=== PATIENT | male | born 1950 | race Caucasian/White ===

== ENCOUNTER 2024-04-21 22:04 | Inpatient (IN) | payer MEDICARE ==
[~2024-04-21] VITALS: Ht 198.1 cm; Wt 120.3 kg
[2024-04-21] MEDS ORDERED: PROT1TAB2 PO (22:40)
[2024-04-21] MEDS ORDERED: XARE15TA PO (22:40)
[2024-04-21] MEDS ORDERED: ATOR1TAB21 PO (22:40)
[2024-04-21] MEDS ORDERED: METO1TAB87 PO (22:40)
[2024-04-21] MEDS ORDERED: KEPP1TAB PO (22:40)
[2024-04-21] MEDS: OXYMETAZOLINE 0.05% NASAL SPRAY (AFRIN) ONE (23:05)
[2024-04-21 23:07] LABS: BASO # 0.1 10^3/uL (0.0-0.2); BASO % 0.5 % (0.0-1.0); HEMATOCRIT 32.6 % (42.0-52.0); HEMOGLOBIN 10.9 g/dl (13.5-17.5); LYMPH # 0.9 10^3/uL (1.5-5.0); LYMPH % 3.2 % (24.0-44.0); MEAN CORPUSCULAR HEMOGLOBIN 33.4 pg (27.0-33.0); MEAN CORPUSCULAR HGB CONC 33.4 g/dl (32.0-36.5); MONO # 2.3 10^3/uL (0.0-0.8); MONO % 7.7 % (2.0-8.0); NEUTROPHILS # 24.6 10^3/uL (1.5-8.5); RED BLOOD COUNT 3.26 10^6/uL (4.30-6.10); WHITE BLOOD COUNT 29.3 10^3/uL (4.0-10.0)
[2024-04-21 23:11] LABS: PLATELET COUNT, AUTOMATED 18 10^3/uL (150-450)
[2024-04-21 23:23] LABS: INR 1.68; PARTIAL THROMBOPLASTIN TIME 28.3 SECONDS (24.8-34.2); PROTHROMBIN TIME 19.3 SECONDS (12.5-14.5)
[2024-04-22] VITALS (15 sets, daily range): BP systolic 120–160; BP diastolic 50–101; TEMP 97.2–101.6; O2SAT 93–97
[2024-04-22 00:54] LABS: BLOOD UREA NITROGEN 30 MG/DL (9-23); CALCIUM LEVEL 8.3 MG/DL (8.3-10.6); CARBON DIOXIDE LEVEL 24 MMOL/L (20-31); CHLORIDE LEVEL 110 MMOL/L (98-107); CREATININE FOR GFR 1.24 MG/DL (0.70-1.30); GLOMERULAR FILTRATION RATE > 60.0 (>42); GLUCOSE, FASTING 123 MG/DL (74-106); POTASSIUM SERUM 3.7 MMOL/L (3.5-5.1); SODIUM LEVEL 142 MMOL/L (136-145)
[2024-04-22] MEDS: AUGMENTIN 875 MG TAB PO SCH (02:26)
[2024-04-22 06:04] LABS: HEMATOCRIT 29.3 % (42.0-52.0); HEMOGLOBIN 9.7 g/dl (13.5-17.5); MEAN CORPUSCULAR HEMOGLOBIN 33.3 pg (27.0-33.0); MEAN CORPUSCULAR HGB CONC 33.1 g/dl (32.0-36.5); MEAN CORPUSCULAR VOLUME 100.7 fl (80.0-96.0); RED BLOOD COUNT 2.91 10^6/uL (4.30-6.10)
[2024-04-22 06:28] LABS: ALBUMIN 2.5 G/DL (3.2-5.2); ALKALINE PHOSPHATASE 201 U/L (46-116); ALT/SGPT 107 U/L (7.0-40); AST/SGOT 98 U/L (<34); BILIRUBIN,TOTAL 0.7 MG/DL (0.3-1.2); BLOOD UREA NITROGEN 29 MG/DL (9-23); CALCIUM LEVEL 8.2 MG/DL (8.3-10.6); CARBON DIOXIDE LEVEL 28 MMOL/L (20-31); CHLORIDE LEVEL 109 MMOL/L (98-107); CREATININE FOR GFR 1.03 MG/DL (0.70-1.30); GLOMERULAR FILTRATION RATE > 60.0 (>42); GLUCOSE, FASTING 108 MG/DL (74-106); POTASSIUM SERUM 3.7 MMOL/L (3.5-5.1); SODIUM LEVEL 142 MMOL/L (136-145); TOTAL PROTEIN 5.2 G/DL (5.7-8.2)
[2024-04-22 06:33] LABS: PLATELET COUNT, AUTOMATED 25 10^3/uL (150-450); WHITE BLOOD COUNT 31.2 10^3/uL (4.0-10.0)
[2024-04-22] MEDS ORDERED: KEPP10002 PO (07:30)
[2024-04-22] MEDS ORDERED: METO1TAB32 PO (07:30)
[2024-04-22] MEDS ORDERED: HOME MED LIST COMPLETE! XX SCH (07:35)
[2024-04-22 07:44] LABS: INR 1.42; PROTHROMBIN TIME 16.9 SECONDS (12.5-14.5)
[2024-04-22] MEDS: LR 1,000 ML IV ONE ×2 (08:26→18:43)
[2024-04-22] MEDS: AMPICILLIN SOD/SULBACTAM SOD 3 GM in D5W MINI-BAG PLUS 100 ML IV SCH (08:27)
[2024-04-22] MEDS: levETIRAcetam 250MG TABLET (KEPPRA) PO SCH (08:27)
[2024-04-22] MEDS: PANTOPRAZOLE 40MG TAB (PROTONIX) PO SCH (08:27)
[2024-04-22 09:07] LABS: C REACTIVE PROTEIN QUANTITATIV 2.5 MG/DL (<1.0)
[2024-04-22 09:17] LABS: PROCALCITONIN 0.26 ng/ml
[2024-04-22] MEDS ORDERED: METOPROLOL SUCC *XL* 25MG TAB (TopROL *XL*) PO SCH ×2 (15:00→21:00)
[2024-04-22] MEDS: METOPROLOL TART 12.5 MG PER 1/2 TAB PO ONE (15:54)
[2024-04-22 16:04] LABS: HEMATOCRIT 31.7 % (42.0-52.0); HEMOGLOBIN 10.5 g/dl (13.5-17.5); MEAN CORPUSCULAR HEMOGLOBIN 33.4 pg (27.0-33.0); MEAN CORPUSCULAR HGB CONC 33.1 g/dl (32.0-36.5); RED BLOOD COUNT 3.14 10^6/uL (4.30-6.10); WHITE BLOOD COUNT 37.5 10^3/uL (4.0-10.0)
[2024-04-22 16:07] LABS: PLATELET COUNT, AUTOMATED 37 10^3/uL (150-450)
[2024-04-22 16:46] LABS: ATYPICAL LYMPH 1 % (0-5); BASOPHILS 1 % (0-1); LYMPHOCYTES 1 % (16-44); METAMYELOCYTES 1 % (0-0); MONOCYTES 5 % (0-5); NEUTROPHILS 84 % (28-66); PLATELET ESTIMATE MARKED DECREASE (NORMAL)
[2024-04-22 16:47] LABS: TOXIC GRANULATION 3+
[2024-04-22] MEDS: ATORVASTATIN 20 MG TAB PO SCH (17:00)
[2024-04-22 17:22] LABS: BASO # 0.2 10^3/uL (0.0-0.2); BASO % 0.5 % (0.0-1.0); LYMPH # 0.8 10^3/uL (1.5-5.0); LYMPH % 2.2 % (24.0-44.0); MONO # 2.1 10^3/uL (0.0-0.8); MONO % 5.6 % (2.0-8.0); NEUTROPHILS # 32.1 10^3/uL (1.5-8.5); NEUTROPHILS % 86.3 % (36.0-66.0)
[2024-04-22] MEDS ORDERED: VANCOMYCIN HCL 1,000 MG, VIAL MATE ADAPTER 1 EACH in D5W 250 ML IV SCH (18:20)
[2024-04-22] MEDS: ACETAMINOPHEN TAB 650MG DOSE (2X325MG) PO PRN (19:03)
[2024-04-22] MEDS: VANCOMYCIN HCL 1,000 MG, VIAL MATE ADAPTER 1 EACH in D5W 250 ML IV ONE ×2 (19:49→22:42)
[2024-04-22] MEDS ORDERED: CLINDAMYCIN 900 MG in IV 1 EA IV SCH (21:00)
[2024-04-22] MEDS: METOPROLOL TART 25 MG TABLET PO SCH (21:44)
[2024-04-22] MEDS: OXYMETAZOLINE 0.05% NASAL SPRAY (AFRIN) SCH (22:51)
[2024-04-22] MEDS: BACITRACIN OINTMENT 30GM TUBE TOP SCH (22:51)
[2024-04-22] MEDS: PIPERACILLIN/TAZOBACTAM SOD 4.5 GM in D5W MINI-BAG PLUS 50 ML IV SCH (23:27)
[2024-04-23] VITALS (8 sets, daily range): BP systolic 99–138; BP diastolic 56–79; TEMP 97.6–98.8; O2SAT 94–96
[2024-04-23 08:03] LABS: HEMATOCRIT 29.3 % (42.0-52.0); HEMOGLOBIN 9.9 g/dl (13.5-17.5); MEAN CORPUSCULAR HEMOGLOBIN 33.7 pg (27.0-33.0); MEAN CORPUSCULAR HGB CONC 33.8 g/dl (32.0-36.5); MEAN CORPUSCULAR VOLUME 99.7 fl (80.0-96.0); RED BLOOD COUNT 2.94 10^6/uL (4.30-6.10); WHITE BLOOD COUNT 23.6 10^3/uL (4.0-10.0)
[2024-04-23 08:08] LABS: PLATELET COUNT, AUTOMATED 30 10^3/uL (150-450)
[2024-04-23 08:24] LABS: BLOOD UREA NITROGEN 14 MG/DL (9-23); CALCIUM LEVEL 7.8 MG/DL (8.3-10.6); CARBON DIOXIDE LEVEL 30 MMOL/L (20-31); CHLORIDE LEVEL 105 MMOL/L (98-107); CREATININE FOR GFR 0.99 MG/DL (0.70-1.30); GLOMERULAR FILTRATION RATE > 60.0 (>42); GLUCOSE, FASTING 98 MG/DL (74-106); POTASSIUM SERUM 3.5 MMOL/L (3.5-5.1); SODIUM LEVEL 141 MMOL/L (136-145)
[2024-04-23] MEDS ORDERED: VANCOMYCIN HCL 750 MG, VIAL MATE ADAPTER 1 EACH in D5W 250 ML IV SCH ×2 (09:00→10:00)
[2024-04-23] MEDS: VANCOMYCIN HCL 1,000 MG, VIAL MATE ADAPTER 1 EACH in D5W 250 ML IV SCH (09:21)
[2024-04-24 00:24] VITALS: BP 100/66; TEMP 98.1; O2SAT 94
[2024-04-24 04:02] VITALS: BP 107/70; TEMP 97.8; O2SAT 92
[2024-04-24 05:56] LABS: BASO % 0.3 % (0.0-1.0); EOS % 0.3 % (0.0-3.0); HEMATOCRIT 31.2 % (42.0-52.0); HEMOGLOBIN 10.3 g/dl (13.5-17.5); LYMPH # 0.7 10^3/uL (1.5-5.0); LYMPH % 5.6 % (24.0-44.0); MEAN CORPUSCULAR HEMOGLOBIN 33.6 pg (27.0-33.0); MEAN CORPUSCULAR VOLUME 101.6 fl (80.0-96.0); MONO # 1.4 10^3/uL (0.0-0.8); MONO % 10.4 % (2.0-8.0); NEUTROPHILS # 10.9 10^3/uL (1.5-8.5); NEUTROPHILS % 81.5 % (36.0-66.0); RED BLOOD COUNT 3.07 10^6/uL (4.30-6.10); WHITE BLOOD COUNT 13.3 10^3/uL (4.0-10.0)
[2024-04-24 06:00] LABS: PLATELET COUNT, AUTOMATED 36 10^3/uL (150-450)
[2024-04-24 06:06] LABS: INR 1.15; PROTHROMBIN TIME 14.4 SECONDS (12.5-14.5)
[2024-04-24 06:26] LABS: ALBUMIN 2.5 G/DL (3.2-5.2); ALKALINE PHOSPHATASE 180 U/L (46-116); ALT/SGPT 67 U/L (7.0-40); AST/SGOT 41 U/L (<34); BILIRUBIN,TOTAL 0.8 MG/DL (0.3-1.2); BLOOD UREA NITROGEN 14 MG/DL (9-23); CALCIUM LEVEL 8.4 MG/DL (8.3-10.6); CARBON DIOXIDE LEVEL 29 MMOL/L (20-31); CHLORIDE LEVEL 108 MMOL/L (98-107); CREATININE FOR GFR 1.04 MG/DL (0.70-1.30); GLOMERULAR FILTRATION RATE > 60.0 (>42); GLUCOSE, FASTING 90 MG/DL (74-106); MAGNESIUM LEVEL 1.6 MG/DL (1.8-2.4); POTASSIUM SERUM 3.8 MMOL/L (3.5-5.1); SODIUM LEVEL 143 MMOL/L (136-145); TOTAL PROTEIN 5.2 G/DL (5.7-8.2)
[2024-04-24 08:34] VITALS: BP 116/71; TEMP 97.9; O2SAT 94
[2024-04-24] MEDS: MAG SULF 1GM/100ML (MAG RUN) 1 GM in IV 1 EA IV SCH (08:54)
[2024-04-24 08:55] VITALS: BP 128/68
[2024-04-24] MEDS ORDERED: BACI50OI TOP (11:29)
[2024-04-24] MEDS ORDERED: OXYM05SP (11:29)
[2024-04-24] MEDS ORDERED: BACI500O8 TOP (12:44)
[2024-04-24] MEDS ORDERED: PX N0.05 (12:44)
[2024-04-24] MEDS ORDERED: KEPP250T5 PO (13:15)
[2024-04-24] MEDS ORDERED: METO1TAB32 PO (13:15)
[2024-04-24] MEDS ORDERED: ATOR1TAB21 PO (13:15)
== END 2024-04-24 13:37 | disposition home or self-care (01) | DRG 813 ==
LOC: M ED 22:04 → M ED INP 22:05 → M MSPAV 04-22 02:15 → M PCU 04-22 20:08 → OBSVTOIN 04-23 11:35
PROVIDERS: ADMIT Preventive Medicine Undersea and Hyperbaric Medicine; ATTEND Internal Medicine
PROC: 30233R1 Transfusion of Nonautologous Platelets into Peripheral Vein, Percutaneous Approach (ICD-10-PCS; principal; 2024-04-22)
DX: D68.32 Hemorrhagic disorder due to extrinsic circulating anticoagulants (principal); C22.1 Intrahepatic bile duct carcinoma; E87.20 Acidosis, unspecified; R04.0 Epistaxis; D69.6 Thrombocytopenia, unspecified; I10 Essential (primary) hypertension; R31.9 Hematuria, unspecified; I48.91 Unspecified atrial fibrillation; D64.9 Anemia, unspecified; Z92.3 Personal history of irradiation; Z86.711 Personal history of pulmonary embolism; Z79.899 Other long term (current) drug therapy; Z79.01 Long term (current) use of anticoagulants